=== PATIENT | male | born 1985 | race Caucasian/White ===

== ENCOUNTER 2021-07-25 15:11 | Emergency (ER) | payer BC ==
[2021-07-25 16:23] LABS: ALT (SGPT) 28 U/L (8-55); AST (SGOT) 13 U/L (5-34); Albumin 4.7 g/dL (3.5-5.0); Alkaline Phosphatase 60 U/L (40-110); Anion Gap 16 mmol/L (10-20); BUN (Urea Nitrogen) 18 mg/dL (8.9-20.6); Bilirubin, Total 2.1 mg/dL (0.2-1.2); Calc. Creatinine Clearance 0 mL/min (70-130); Calcium 9.7 mg/dL (7.8-10.44); Carbon Dioxide 23 mmol/L (22-29); Chloride 98 mmol/L (98-107); Globulin 2.1 g/dL (2.4-3.5); Glucose 116 mg/dL (70-105); Magnesium 1.6 mg/dL (1.6-2.6); Potassium 4.1 mmol/L (3.5-5.1); Protein, Total 6.8 g/dL (6.0-8.3); Sodium 133 mmol/L (136-145)
[2021-07-25 16:26] LABS: Hemoglobin 7.5 g/dL (13.5-17.5); Mean Corpuscular HGB CONC 33.6 g/dL (32.0-36.0); Mean Corpuscular Hemoglobin 32.2 pg (27.0-33.0); Mean Corpuscular Volume 95.7 fl (81.2-95.1); Mean Platelet Volume 9.7 fl (7.4-10.4); Platelet Count 18 10x3/uL (150-450); RBC Distribution Width 16.7 % (11.5-14.5); Red Blood Cell (RBC) Count 2.33 10x6/uL (4.32-5.72); White Blood Cell (WBC) Count 0.1 10x3/uL (3.5-10.5)
[2021-07-25] MEDS ORDERED: Cefepime 2 GM VIAL ONE (16:36)
[2021-07-25] MEDS ORDERED: Acetaminophen 500 MG TAB ONE (16:36)
[2021-07-25 16:40] LABS: Bilirubin Neg (Negative); Blood, Urine Negative (Negative); Clarity Cloudy (Clear); Glucose, Urine (Dipstick) Normal (Negative); Ketone, Urine 150 mg/dL (Negative); Leukocyte Negative (Negative); Nitrite Negative (Negative); Protein, Urine (Dipstick) 15 mg/dl (Neg-Trace)
[2021-07-25 16:41] LABS: SARS-CoV-2 NAA Rapid Test Not Detected (NotDetected)
[2021-07-25 17:08] LABS: Anisocytosis SLIGHT = 6-15 cells (100X) (0-5/hpf); Manual Diff?? NO
[2021-07-25 17:09] LABS: Hypochromia SLIGHT = 6-15 cells (100X) (0-5/hpf); Tear Drops SLIGHT = 2-5 cells (100X) (0-1/hpf)
[2021-07-25 17:16] LABS: Platelet Morphology Comment Appears Decreased; Reflex for Review?? YES
[2021-07-25] MEDS ORDERED: Ketorolac Tromethamine 30 MG/ML VIAL ONE (20:02)
== END 2021-07-25 20:56 | disposition short-term general hospital (02) ==
LOC: CSHERS 15:11
DX: D70.9 Neutropenia, unspecified (principal); R50.81 Fever presenting with conditions classified elsewhere; C91.00 Acute lymphoblastic leukemia not having achieved remission; Z79.899 Other long term (current) drug therapy
CPT/HCPCS: 0240U; 36415; 71045; 80053; 81003; 83605; 83735; 85025; 85060; 86850; 86900; 86901; 87040; 87077; 87086; 87149; 87186; 94760; 96365; 96366; 96367; 96374; J0692; J1885; J3370